=== PATIENT | male | born 1960 | race Caucasian/White ===

== ENCOUNTER 2021-04-02 12:22 | Outpatient (REF) | payer MEDICARE, SELFPAY | END 2021-04-02 12:23 | disposition home or self-care (01) | LOC: HO.HOSX 12:22 | PROVIDERS: Visit Provider Orthopaedic Surgery | DX: Z13.89 Encounter for screening for other disorder (principal) ==

== ENCOUNTER 2021-04-27 08:48 | Outpatient (REF) | payer MEDICARE, SELFPAY | END 2021-04-27 08:49 | disposition home or self-care (01) | LOC: HO.HOSX 08:48 | PROVIDERS: Visit Provider Orthopaedic Surgery | DX: Z13.89 Encounter for screening for other disorder (principal) ==

== ENCOUNTER 2021-05-08 09:37 | Outpatient (REF) | payer MEDICARE, SELFPAY | END 2021-05-08 09:38 | disposition home or self-care (01) | LOC: HO.HOSX 09:37 | PROVIDERS: Visit Provider Physician Assistant | DX: Z13.89 Encounter for screening for other disorder (principal) ==

== ENCOUNTER 2021-12-03 07:52 | Outpatient (REF) | payer MEDICARE, SELFPAY | END 2021-12-03 07:53 | disposition home or self-care (01) | LOC: HO.HOSX 07:52 | PROVIDERS: Visit Provider Orthopaedic Surgery | DX: Z13.89 Encounter for screening for other disorder (principal) ==

== ENCOUNTER 2022-02-04 12:08 | Outpatient (REF) | payer MEDICARE, SELFPAY | END 2022-02-04 12:09 | disposition home or self-care (01) | LOC: HO.HOSX 12:08 | PROVIDERS: Visit Provider Orthopaedic Surgery | DX: M25.662 Stiffness of left knee, not elsewhere classified (principal) | CPT/HCPCS: 99202 ==